=== PATIENT | male | born 1965 | race Caucasian/White ===

== ENCOUNTER → 2022-01-18 14:02 | Outpatient (CLI) | payer OTHER, SELFPAY ==
--- NOTE | ~2022-01-18 | CT_ITS ---
EXAMINATION: CT pelvis wo con DATE: 01/18/2022 14:18 INDICATION: Pubic fracture TECHNIQUE: High resolution computed tomography (CT) of the pelvis was performed without intravenous c ontrast. Additional sagittal and coronal reconstructions were performed. Automated exposure control a nd iterative reconstruction technique were employed. The dose-length product was 558.25 mGy-cm. COMPARISON: 02/11/2019 and radiograph dated 02/26/1990 FINDINGS: Osteitis pubis. No change in appearance of an old healed nondisplaced fracture of the left pubic body . No acute fractures identified. Mild bilateral hip osteoarthritis with no hip joint effusion. Very s mall bilateral fat-containing inguinal hernias. Minute fat-containing umbilical hernia. Scattered div erticulosis most prominent at the cecum without inflammatory change to suggest diverticulitis. Normal appendix. Bladder is normal. Mild prostatomegaly. No free fluid in the pelvis. Chronic L5 spondylolysis with bilateral pars interarticularis defects and mild increase in now 12 mm anterolisthesis on S1. There is mild associated disc height loss at L5-S1 with large disc extrusion w hich extends from foraminal zone to foraminal zone. The extrusion which extends up to 6 mm cephalad t o the level of the inferior endplate of L5 contributes along with moderate bilateral facet osteoarthr itis to moderate to severe bilateral neural foraminal stenosis. Disc bulge and mild bilateral facet o steoarthritis at L4-L5 contributes to moderate bilateral neural foraminal stenosis but only minimal c entral canal stenosis at this level. Mild bilateral sacroiliac osteoarthritis with anterior bridging osteophytes on the right and nearly bridging osteophytes on the left. IMPRESSION: 1. Osteitis pubis and stable appearance of an old fracture of the left pubic body. No acute osseous a bnormality. 2. L5 spondylolysis with 12 mm anterolisthesis on S1 and mild lower lumbar spondylosis. 3. Diverticulosis. Reviewed, dictated and finalized at location B. IMPRESSION: 1. Osteitis pubis and stable appearance of an old fracture of the left pubic matias dy. No acute osseous abnormality. 2. L5 spondylolysis with 12 mm anterolisthesis on S1 and mild lower lumbar spon dylosis. 3. Diverticulosis.
== END ==
PROVIDERS: PCP Family Medicine; Visit Provider Family Medicine
DX: S32.599S Other specified fracture of unspecified pubis, sequela (principal); X58.XXXS Exposure to other specified factors, sequela; K57.30 Diverticulosis of large intestine without perforation or abscess without bleeding; M47.896 Other spondylosis, lumbar region
CPT/HCPCS: 72192

== ENCOUNTER 2022-05-16 03:06 | Day surgery (SDC) | payer OTHER, SELFPAY ==
[2022-05-02 14:48] VITALS: BMI 28.1
--- NOTE | 2022-05-14 09:52 | PM.HPGS ---
History of Present Illness History of Present Illness Consent: Risks, benefits, and alternatives have been discussed and questions answered. Patient agrees to proceed with procedure. Chief complaint: Abnormal CT scan Narrative: Jonathan Sofia is a 56 year old male who has had several episodes of diverticulitis over the last couple of years.? When he has most recent attack he went to the emergency room at [facility] where scan showed inflammation around the terminal ileum suggestive of either IBD or diverticulitis.? He was sent home on antibiotics and took them for few days but was not sure he should continue them.? I reviewed the report and see that on that study there was no classic findings of diverticulitis in the sigmoid colon.? Also, when he was seen for left lower quadrant pain [address] scan did not show any acute changes.? The scan however did show what appeared to be ileitis.? He is known to have diverticulosis in the ascending colon and therefore it is possible he had diverticulitis in that area.? Was hospitalized for 3 days receiving piperacillin.? He was discharged on oral antibiotics, metronidazole and Cipro.? At that point he did not feel that he would need the antibiotics.? He double checked with his primary care provider who told him he did not think he would need to take them.? The patient had never had abdominal pain.? His primary symptom had been back pain that resolved.? It had chills prior to his visit to the emergency room and in the ER was told he had a fever.? His white blood count was normal. His last colonoscopy, done 4 years ago showed extensive diverticulosis throughout the colon.? There were also 5 small polyps 1 of which was an adenoma. Review of Systems Review of Systems: All systems reviewed & are unremarkable except as noted in HPI and below PMFSH Past Medical History Medical History BMI 29.0-29.9,adult Hyperlipidemia Pubic ramus fracture Screening for prostate cancer Surgical History Surgical History Hx of shoulder surgery Family History Family History Mother Hypertension Cancer Grandparent Family history of lung cancer Father Family history of congenital heart disease Acute myocardial infarction Hypertension Sibling No problems noted. Other Family history of cardiovascular disease Family history of malignant neoplasm Social History Social History Smoking packs per day: 1 Smoking cigarettes per day: 20.0 Years smoked: 30 Smoking pack-years: 30.00 Smoking status: Current every day smoker Tobacco type: cigarettes Second hand tobacco smoke exposure: Yes Alcohol intake: current Drinks per week: 8 Substance use: never Substance use type: does not use Living arrangements: with family Additional occupation/education comments: park director Gender identity (if verbalized by the patient): Male Spiritual care concerns: No Meds Home Medications and Allergies Home Medications Medication Instructions Recorded Confirmed Type rosuvastatin 10 mg tablet 10 mg PO DAILY #30 tabs 04/25/22 05/02/22 Rx fexofenadine 180 mg tablet 180 mg PO DAILY 05/02/22 05/02/22 History fluticasone propionate 50 1 spray intranasal DAILY 05/02/22 05/02/22 History mcg/actuation nasal spray,suspension (Allergy Relief (fluticasone)) multivitamin with minerals-folic 1 tablet PO DAILY 05/02/22 05/02/22 History acid 0.4 mg tablet Allergies Allergy/AdvReac Type Severity Reaction Status Date / Time No Known Allergies Allergy Verified 05/16/22 08:08 Exam Const: General: alert Orientation/consciousness: patient oriented x3 Resp: Auscultation: clear to auscultation bilaterally Cardio: Rhy
[2022-05-16 08:09] VITALS: BMI 30.3
[2022-05-16 08:11] VITALS: BP 127/85; PULSE 72; RESP 18; TEMP 36.1; O2SAT 99
[2022-05-16] MEDS: LACTATED RINGERS 1,000 ML 150 ML IV CONT (08:13)
--- NOTE | 2022-05-16 08:16 | WPDANESEPPF ---
Anes - Initial Pre Proc Eval Procedure: Operation Date: 05/16/22 09:00 Proposed Procedures p Colonoscopy - Josh Khan MD Date/Time: 05/16/22 08:16 Surgeon: Josh Khan MD Pre Op Diagnosis: Abnormal CT scan Patient Data Age: 56 Gender: M Height: 1.73 m Weight: 90.6 kg Last Vital Signs Temp 36.1 C L 05/16/22 08:11 Pulse 72 05/16/22 08:11 Resp 18 05/16/22 08:11 BP 127/85 05/16/22 08:11 Pulse Ox 99 05/16/22 08:11 O2 Del Method Room Air 05/16/22 08:11 Allergies Allergy/AdvReac Type Severity Reaction Status Date / Time No Known Allergies Allergy Verified 05/16/22 08:08 Home Medications Medication Instructions Recorded Confirmed Type rosuvastatin 10 mg tablet 10 mg PO DAILY #30 tabs 04/25/22 05/02/22 Rx fexofenadine 180 mg tablet 180 mg PO DAILY 05/02/22 05/02/22 History fluticasone propionate 50 1 spray intranasal DAILY 05/02/22 05/02/22 History mcg/actuation nasal spray,suspension (Allergy Relief (fluticasone)) multivitamin with minerals-folic 1 tablet PO DAILY 05/02/22 05/02/22 History acid 0.4 mg tablet Patient hx anesthesia problems: none Family hx anesthesia problems: none Results Review: All pre-operative results and documents have been reviewed as part of the pre-operative evaluation. [facility] Past Medical History Medical History BMI 29.0-29.9,adult Hyperlipidemia Pubic ramus fracture Screening for prostate cancer Surgical History Surgical History Hx of shoulder surgery Family History Family History Mother Hypertension Cancer Grandparent Family history of lung cancer Father Family history of congenital heart disease Acute myocardial infarction Hypertension Sibling No problems noted. Other Family history of cardiovascular disease Family history of malignant neoplasm Social History Social History Smoking packs per day: 1 Smoking cigarettes per day: 20.0 Years smoked: 30 Smoking pack-years: 30.00 Smoking status: Current every day smoker Tobacco type: cigarettes Second hand tobacco smoke exposure: Yes Alcohol intake: current Drinks per week: 8 Substance use: never Substance use type: does not use Living arrangements: with family Additional occupation/education comments: park director Gender identity (if verbalized by the patient): Male Spiritual care concerns: No Anes - Eval Final PreProcedure Day of Procedure 05/16/22 08:16 Patient weight: obese Heart: regular rate and rhythm Lungs: clear to auscultation Airway: Mallampati scale class II Neurological: alert and oriented Last oral intake: >/= 8 hours ASA classification: III Emergent: no Anesthetic plan: proceed Anesthesia type and monitoring: general GIVS and standard monitoring Results Review: All pre-operative results and documents have been reviewed as part of the pre-operative evaluation. Informed Consent: The patient's anesthetic plan and its attendant risks and benefits were discussed with the patient/family/POA. Questions were solicited and answers provided to the satisfaction of the patient/family/POA.
[2022-05-16 09:18] VITALS: BP 122/76; PULSE 78; RESP 19; O2SAT 97
[2022-05-16 09:28] VITALS: BP 115/83; PULSE 72; RESP 24; O2SAT 97
[2022-05-16 09:38] VITALS: BP 119/82; PULSE 71; RESP 19; O2SAT 98
== END 2022-05-16 09:44 | disposition home or self-care (01) ==
PROVIDERS: PCP Family Medicine; Visit Provider Internal Medicine Gastroenterology
PROC: 0DJD8ZZ Inspection of Lower Intestinal Tract, Via Natural or Artificial Opening Endoscopic (ICD-10-PCS; CPT 45378; principal; 2022-05-16 09:00)
DX: K63.5 Polyp of colon (principal); E78.5 Hyperlipidemia, unspecified; F17.210 Nicotine dependence, cigarettes, uncomplicated; E66.9 Obesity, unspecified; Z68.30 Body mass index [BMI] 30.0-30.9, adult; K64.8 Other hemorrhoids
CPT/HCPCS: 45380; 88305; J2704; J7120

== ENCOUNTER 2023-02-09 13:33 | Outpatient (CLI) | payer OTHER, SELFPAY ==
--- NOTE | ~2023-02-09 | CT_ITS ---
EXAMINATION: CT lung screening DATE: 02/09/2023 13:55 INDICATION: Personal history of nicotine dependence, current smoker with 35 pack year history TECHNIQUE: Computed tomography (CT) of the chest was performed without intravenous contrast. The dose -length product (DLP) was 145.07 mGy-cm. Automated exposure control and iterative reconstruction tech [employer] System were employed. COMPARISON: None FINDINGS: There is a 7 mm nodule in the right lower lobe on image 52. There is mild emphysema. Calcif ied pulmonary nodules and calcified right hilar and mediastinal lymph nodes are consistent with old g ranulomatous disease. No pathologically enlarged thoracic lymph nodes are identified. The heart size is normal. There is mild thoracic spondylosis. Punctate calcifications in an otherwise normal spleen likely represent healed granulomatous disease. IMPRESSION: 1. Lung-RADS category 3: Probably benign. Followup with noncontrast low-dose chest CT in 6 months is recommended. Reviewed, dictated and finalized at location L. IMPRESSION: 1. Lung-RADS category 3: Probably benign. Followup with noncontrast low-dose ch est CT in 6 months is recommended.
--- NOTE | 2023-02-09 14:10 | ECG_ITS ---
Measurements Intervals [place] Rate: 67 P: 56 CT: 146 QRS: -59 QRSD: 93 T: -3 QT: 388 QTc: 412 Interpretive Statements SINUS RHYTHM LEFT AXIS DEVIATION BORDERLINE T WAVE ABNORMALITY- INFERIOR LEADS BASELINE WANDER- I, II, AVR, AVF BORDERLINE ECG NO PREVIOUS ECG AVAILABLE FOR COMPARISON Electronically Signed On 02-09-2023 15:50:56 CDT by Adama Dominique D.O.
== END 2023-02-09 13:34 | disposition home or self-care (01) ==
PROVIDERS: PCP Family Medicine; Visit Provider Family Medicine
DX: R09.89 Other specified symptoms and signs involving the circulatory and respiratory systems (principal); R07.9 Chest pain, unspecified; Z72.0 Tobacco use; R91.8 Other nonspecific abnormal finding of lung field
CPT/HCPCS: 71271; 93005

== ENCOUNTER 2023-03-21 12:30 | Outpatient (CLI) | payer OTHER, SELFPAY ==
--- NOTE | 2023-03-21 15:00 | NEURO_ITS ---
Impression: # Complains of numbness of both hands, left more than right. # Left moderate Carpal Tunnel Syndrome. # Bilateral ulnar neuropathy across the elbows. # Abnormal Needle/EMG exam. Nerve Conduction Studies Anti Sensory Summary Table Stim Site NR Peak (ms) P-T Amp (?V) Site1 Site2 Delta-P (ms) Dist (cm) Sunday (m/s) Left Median Anti Sensory (2-3nd Digit) Wrist 4.4 21.7 Wrist 2-3nd Digit 4.4 14.0 32 Wrist 4.8 14.9 Wrist 2-3nd Digit 4.4 14.0 32 Right Median Anti Sensory (2-3nd Digit) Wrist 4.3 37.0 Wrist 2-3nd Digit 4.3 14.0 33 Wrist 4.3 22.4 Wrist 2-3nd Digit 4.3 14.0 33 Left Radial Anti Sensory (Base 1st Digit) Wrist 2.1 20.6 Wrist Base 1st Digit 2.1 0.0 Right Radial Anti Sensory (Base 1st Digit) Wrist 2.4 15.2 Wrist Base 1st Digit 2.4 0.0 Left Ulnar Anti Sensory (5th Digit) Wrist 2.7 30.4 Wrist 5th Digit 2.7 14.0 52 Right Ulnar Anti Sensory (5th Digit) Wrist 2.4 52.1 Wrist 5th Digit 2.4 14.0 58 Motor Summary Table Stim Site NR Onset (ms) O-P Amp (mV) Site1 Site2 Delta-0 (ms) Dist (cm) Sunday (m/s) Left Median Motor (Abd Poll Brev) 10.9 1.5 Right Median Motor (Abd Poll Brev) 9.3 0.9 Left Ulnar Motor (Abd Dig Minimi) Wrist 2.2 5.8 A Elbow Wrist 5.8 28.0 48 A Elbow 8.0 4.1 B Elbow Wrist 3.9 21.0 54 B Elbow 6.1 4.0 Right Ulnar Motor (Abd Dig Minimi) Wrist 2.2 5.3 A Elbow Wrist 6.0 29.0 48 A Elbow 8.2 4.6 B Elbow Wrist 3.7 20.0 54 B Elbow 5.9 4.7 F Wave Studies NR F-Lat (ms) L-R F-Lat (ms) Left Median (Mrkrs) (Abd Poll Brev) 31.01 2.50 Right Median (Mrkrs) (Abd Poll Brev) 28.52 2.50 Left Ulnar (Mrkrs) (Abd Dig Min) 30.02 0.84 Right Ulnar (Mrkrs) (Abd Dig Min) 29.18 0.84 EMG Side Muscle Nerve Root Ins Act Fibs Amp Dur Recrt Comment Right 1stDorInt Ulnar C8-T1 Nml Nml Incr >12ms Reduced Right Ext Indicis Radial (Post Int) C7-8 Nml Nml Nml Nml Nml Right Ext Digitorum Radial (Post Int) C7-8 Nml Nml Nml Nml Nml Right BrachioRad Radial C5-6 Nml Nml Nml Nml Nml Right PronatorTeres Median C6-7 Nml Nml Nml Nml Nml Right Abd Poll Brev Median C8-T1 Nml Nml Nml Nml Nml Left 1stDorInt Ulnar C8-T1 Nml Nml Incr >12ms Reduced Left Ext Indicis Radial (Post Int) C7-8 Nml Nml Nml Nml Nml Left Ext Digitorum Radial (Post Int) C7-8 Nml Nml Nml Nml Nml Left BrachioRad Radial C5-6 Nml Nml Nml Nml Nml Left PronatorTeres Median C6-7 Nml Nml Nml Nml Nml Left Abd Poll Brev Median C8-T1 Nml Nml Incr >12ms Reduced Right ABD Dig Min Ulnar C8-T1 Nml Nml Incr >12ms Reduced Left ABD Dig Min Ulnar C8-T1 Nml Nml Incr >12ms Reduced MTDD
== END 2023-03-21 12:31 | disposition home or self-care (01) ==
PROVIDERS: PCP Family Medicine; Visit Provider Family Medicine
DX: R20.0 Anesthesia of skin (principal); G56.02 Carpal tunnel syndrome, left upper limb; G56.23 Lesion of ulnar nerve, bilateral upper limbs
CPT/HCPCS: 95886; 95911

== ENCOUNTER 2024-04-09 09:11 | Outpatient (CLI) | payer OTHER, SELFPAY ==
--- NOTE | ~2024-04-09 | CT_ITS ---
EXAMINATION: CT lung screening DATE: 04/09/2024 09:26 INDICATION: Solitary pulmonary nodule TECHNIQUE: Computed tomography (CT) of the chest was performed without intravenous contrast. Addition al 3D reconstructions utilizing coronal maximum intensity projection (MIP) were performed. Automated exposure control and iterative reconstruction technique were employed. The dose-length product was 19 7.09 mGy-cm. COMPARISON: 02/09/2023 FINDINGS: Mild emphysema. Unchanged 7 x 5 mm nodule at the superior segment of the right lower lobe. There is a cluster of a few calcified and <4 mm noncalcified nodules in the anterior segment the right upper lo be along with calcified right hilar and mediastinal lymph nodes and a few splenic calcifications cons istent with sequela of old granulomatous disease. No other new or enlarging pulmonary nodules, pneumo hi, pulmonary edema or pleural effusion. Heart size is normal. Small amount of atherosclerotic coron khalida artery calcific location. No pericardial effusion. Thoracic aorta is normal in caliber. No pathol ogically enlarged thoracic lymphadenopathy. Mild thoracic dextrocurvature with mild to moderate spond ylosis. IMPRESSION: 1. Lung-RADS category 2: Benign appearance or behavior. Continue annual screening with noncontrast lo w-dose chest CT in 12 months. Reviewed, dictated and finalized at location B. IMPRESSION: 1. Lung-RADS category 2: Benign appearance or behavior. Continue annual screeni ng with noncontrast low-dose chest CT in 12 months.
== END 2024-04-09 09:12 | disposition home or self-care (01) ==
LOC: GOSHIMG 09:12
PROVIDERS: PCP Family Medicine; Visit Provider Family Medicine
DX: Z12.2 Encounter for screening for malignant neoplasm of respiratory organs (principal); R91.1 Solitary pulmonary nodule; F17.210 Nicotine dependence, cigarettes, uncomplicated
CPT/HCPCS: 71271

== ENCOUNTER 2024-04-17 09:29 | Outpatient (CLI) | payer OTHER, SELFPAY ==
--- NOTE | ~2024-04-17 | XR_ITS ---
Right Knee Technique: AP and lateral views were obtained. Clinical History: Pain Findings: No fracture or dislocation is seen. Osseous alignment is anatomic. There is mild degenerati ve spurring at the patella. Soft tissues are unremarkable. No joint effusion is seen. Impression: Mild patellar degenerative spurring. Reviewed, dictated and finalized at location . Impression: Mild patellar degenerative spurring.
== END 2024-04-17 09:30 | disposition home or self-care (01) ==
PROVIDERS: PCP Orthopaedic Surgery; Visit Provider Nurse Practitioner Adult Health
DX: M25.561 Pain in right knee (principal)
CPT/HCPCS: 73560

== ENCOUNTER 2024-05-02 07:41 | Outpatient (CLI) | payer OTHER, SELFPAY ==
--- NOTE | ~2024-05-02 | MR_ITS ---
MRI of the right knee Clinical history: Enthesopathy, injury Technique: Coronal proton density and proton density-weighted images, sagittal proton-density and T2 fat-sat images, and axial proton-density fat-saturated images were acquired. Findings: Anterior and posterior cruciate ligaments are intact. Medial collateral ligament and the la teral collateral ligament complex are intact. Popliteus tendon is intact. Questionable very subtle oblique flap tear of the posterior horn of the medial meniscus versus intras ubstance degenerative signal. Lateral meniscus intact. There is moderate to high-grade chondromalacia extensive involving the superior patella. There is mil d chondral thinning in the medial compartment. Extensor mechanism intact. Moderate joint effusion present. No Mcmanus's cyst. Impression: Questionable subtle oblique flap tear of the posterior horn of the medial meniscus versus intrasubsta nce degenerative signal. Chondromalacia patella, as detailed above. Mild chondral thinning medial compartment. Moderate joint effusion. Reviewed, dictated and finalized at location . Impression: Questionable subtle oblique flap tear of the posterior horn of the medial menis cus versus intrasubstance degenerative signal. Chondromalacia patella, as detailed above. Mild chondral thinning medial compar tment. Moderate joint effusion.
== END 2024-05-02 07:42 | disposition home or self-care (01) ==
PROVIDERS: PCP Family Medicine; Visit Provider Nurse Practitioner Adult Health
DX: M77.9 Enthesopathy, unspecified (principal); M25.461 Effusion, right knee
CPT/HCPCS: 73721